=== PATIENT | female | born 1980 | race Caucasian/White ===

== ENCOUNTER 2018-10-24 15:51 | Inpatient (IN) | payer MEDICAID ==
[~2018-10-24] VITALS: Ht 154.9 cm; Wt 86.3 kg
[2018-10-24 16:44] VITALS: BP 115/73; PULSE 69; RESP 18
[2018-10-24 16:46] VITALS: Ht 154.9 cm; Wt 86.3 kg
[2018-10-24] MEDS ORDERED: LACTATED RINGER'S 1,000 ML IV SCH (16:57)
[2018-10-24] MEDS ORDERED: LIDOCAINE 1% (MPF) 30 ML INJ INJ PRN (17:00)
[2018-10-24] MEDS ORDERED: MISOPROSTOL 200 MCG TAB PR PRN ×2 (17:00→22:30)
[2018-10-24] MEDS ORDERED: CARBOPROST 250 MCG INJ IM PRN ×2 (17:00→22:30)
[2018-10-24] MEDS ORDERED: METHYLERGONOVINE 0.2 MG INJ IM PRN ×2 (17:00→22:30)
[2018-10-24] MEDS ORDERED: OXYTOCIN 30 UNITS/LR 500 ML IV PRN ×2 (17:00→22:30)
[2018-10-24] MEDS ORDERED: OXYTOCIN 30 UNITS/LR 500 ML IV SCH ×2 (17:00)
--- NOTE | 2018-10-24 17:07 | TRIAGE ---
OB Triage Datetime Report Generated by CPN: 10/24/2018 17:07 Datetime: 10/24/2018 16:20 EGA: 38.6 Datetime: 10/24/2018 16:17 Stage of : OB Triage Assessment Type: Triage Time of Arrival: 10/24/2018 16:17 Arrived By: Ambulatory Arrived From: Home Chief Complaint: R/O LABOR HAS BLOODY SHOW AND MILD CONTRACTIONS Movement: Present Contractions: Irregular Time Contractions Began: 10/24/2018 07:00 Rupture of Membranes: Ruptured Vaginal Bleeding: None Vaginal Discharge: Present Recent Sexual Intercouse: Denies Abdominal Trauma: Not Applicable Patient Complaints: Contractions Additional Patient Complaints: NONE Time Provider Notified: 10/24/2018 16:40 Provider Notified: DELSHAD Initial Plan: EFM AND TOCO ,VE Maternal Assessment Level of Consciousness: Fully Conscious DTR's/Clonus: DTRs 2+; No Clonus Headache: Denies Blurred Vision: No Respiratory Effort: Unlabored; Regular Rhythm; Equal Expansion Breath Sounds, Left: Clear and Equal Breath Sounds, Right: Clear and Equal Nausea/Vomiting: Denies RUQ Epigastric Pain: Denies Lower Extremities Edema: Bilateral Lower Extremities Degree: 1+ Upper Extremities Edema: Bilateral Upper Extremities Degree: 1+ Facial Edema: None Temperature Route: Oral Fall Risk Assessment History of Falling: (0) No Secondary Diagnosis: (0) No Ambulatory Aid: (0) Bedrest/Nurse Assist IV Therapy: (0) No Gait: (0) Normal/Bedrest/Immobile Mental Status: (0) Oriented to Own Ability Fall Score: 0 Fall Risk Score Definition: No Risk: No action required Labor Evaluation Monitor Mode: External Heart Rate Monitor Mode: External US Pain Assessment Pain Scale: 6 Pain Presence: Intermittent Pain Type: Cramping Pain Location: Abdomen; Back Pain Goal: 6 Pain Relief Measures: Comfort Measures Vaginal Exam Dilatation (cms): 4.0 Effacement (%): 80 Station: -2 Exam By: PS Membrane Status: Ruptured Membranes Ruptured Date/Time: 10/24/2018 13:30 Membranes Rupture Method: Spontaneous Amniotic Fluid Color: Clear Amniotic Fluid Amount: Small Amniotic Fluid Odor: Normal Vaginal Bleeding: Normal Show
[2018-10-24] MEDS ORDERED: IBUPROFEN 600 MG TAB PO PRN (17:30)
[2018-10-24] MEDS ORDERED: BUTORPHANOL 2 MG INJ IV PRN (17:30)
--- NOTE | 2018-10-24 20:50 | HP ---
Date/Time of Note Date/Time of Note DATE: 10/24/18 TIME: 20:49 OB - History Hx of Present Chief Complaint: contractions Estimated Due Date: Nov 01, 2018 : 3 Para: 2 Spontaneous : 0 Therapeutic : 0 Care: Good Care Ultrasounds: Normal mid trimester US Obstetrical Complications: None Medical Complications: None Past Family/Social History * Past Medical, Surgical, Family and Obstetric Histories reviewed from chart. GBS Status: Negative OB Admission Exam Vital Signs Vital Signs Vital Signs Date Temp Pulse Resp B/P (MAP) Pulse Ox O2 O2 Flow FiO2 Time Delivery Rate 10/24/18 98.0 69 18 115/73 98 Room Air 16:44 (87) Physical Exam HEENT: WNL Heart: Rhythm Normal Lungs: Clear, Equal Abdomen: WNL Extremities: Normal Reflexes: Normal Cervical Dilatation: 4cm Effacement: 50% Station: -1 Membranes: Ruptured Amniotic Fluid: Clear Heart Rate: 120's Accelerations: Accelerations Present Decelerations: No Decelerations Varibility: Moderate Last 72 hours Lab Results CBC & BMP 10/24/18 17:00 OB Assessment/Plan Reason for admission: active labor Plan: Expectant Management OSMANY MARIN MD Oct 24, 2018 20:50
--- NOTE | 2018-10-24 20:52 | LDN ---
Date/Time of Note Date/Time of Note DATE: 10/24/18 TIME: 20:50 Delivery Summary Weeks of Gestation 38 weeks and 6 days Placenta Delivered: Spontaneously Meconium: none Episiotomy: No Perineal laceration: 0 Anesthesia type: None Estimated blood loss: 100 Sponge & Needle done & correct: Yes All needle counts correct: Yes Any foreign bodies felt in the: No Delivery Information Sex Infant Sex: male Apgars 1 Minute: 8 5 Minute: 9 Suctioning Nose & mouth suctioned at isael: No Delee suction performed: No Umbilical Cord Umbilical cord with: 3 Vessels Cord presentations: nuchal cord Nuchal cord present X: 1 Cord Blood was obtained: Yes Mother & Baby Disposition Disposition Mom & Baby to Maternity; Good: Yes OSMANY MARIN MD Oct 24, 2018 20:52
[2018-10-24 22:00] VITALS: BP 109/70; PULSE 62; RESP 19
[2018-10-24] MEDS: SENNA/DOCUSATE NA (8.6MG/50MG) TAB PO SCH (22:30)
[2018-10-24] MEDS ORDERED: WITCH HAZEL/GLYCERIN PAD PR PRN (22:30)
[2018-10-24] MEDS ORDERED: HYDROCODONE/APAP (5/325) TAB PO PRN (22:30)
[2018-10-24] MEDS ORDERED: ACETAMINOPHEN 325 MG TAB PO PRN (22:30)
[2018-10-24] MEDS ORDERED: BENZOCAINE 20% 56 ML SPRAY TOP PRN (22:30)
[2018-10-24] MEDS ORDERED: DIBUCAINE 1% 30 GM OINT TOP PRN (22:30)
[2018-10-25] VITALS: BP 106/68; PULSE 68; RESP 18
[2018-10-25] MEDS: LACTATED RINGER'S 1,000 ML IV* SCH ×2 (00:08→06:17)
[2018-10-25 04:00] VITALS: BP 100/59; PULSE 70; RESP 19
[2018-10-25] MEDS: IBUPROFEN 600 MG TAB PO SCH ×5 (05:32→23:40)
[2018-10-25 08:00] VITALS: BP 103/56; PULSE 79; RESP 18
[2018-10-25] MEDS: SENNA/DOCUSATE NA (8.6MG/50MG) TAB PO SCH ×2 (10:36→20:55)
[2018-10-25 15:49] VITALS: BP 105/52; PULSE 67; RESP 18
[2018-10-25 20:00] VITALS: BP 109/69; PULSE 76; RESP 18
[2018-10-26 04:13] VITALS: BP 95/59; PULSE 65; RESP 18
[2018-10-26] MEDS: IBUPROFEN 600 MG TAB PO SCH ×3 (05:33→18:00)
[2018-10-26 08:00] VITALS: BP 107/77; PULSE 63; RESP 18
[2018-10-26] MEDS ORDERED: DIPHTH/TET/ACEL PERTUSS (ADULT) 0.5 ML VIAL IM* ONE (09:00)
[2018-10-26] MEDS: SENNA/DOCUSATE NA (8.6MG/50MG) TAB PO SCH (09:48)
[2018-10-26 16:00] VITALS: BP 102/65; PULSE 61; RESP 19
--- NOTE | 2018-10-26 18:14 | DS ---
Date/Time of Note Date/Time of Note DATE: 10/26/18 TIME: 18:13 Obstetrical Discharge Record Final Diagnosis Final Diagnosis: Term delivered Vaginal Delivery Obstetrical Delivery: Spontaneous Condition on Discharge Physical Assessment Voiding: Yes Bowel Movement: Yes Breast: Soft, non-tender, Filling Fundus: Firm Calf Tenderness: No Patient Condition: Stable OSMANY MARIN MD Oct 26, 2018 18:14
== END 2018-10-26 19:00 | disposition home or self-care (01) | DRG 807 ==
LOC: OBT 15:51 → L-D 15:54 → OBT 16:40 → L-D 16:40 → PP1 21:49
PROVIDERS: ADMIT Obstetrics & Gynecology; ATTEND Obstetrics & Gynecology
PROC: 10E0XZZ Delivery of Products of Conception, External Approach (ICD-10-PCS; principal; 2018-10-24)
DX: O69.81X0 Labor and delivery complicated by cord around neck, without compression, not applicable or unspecified (principal); Z37.1 Single stillbirth; Z3A.38 38 weeks gestation of pregnancy; Z23 Encounter for immunization
CPT/HCPCS: 85025; 85610; 85730; 86592; 86850; 86900; 86901; 87340; 90686; 90715; 99464; G0463; J2590; J7120